=== PATIENT | male | born 1990 | race Hispanic/Latino ===

== ENCOUNTER 2024-10-30 09:31 | Day surgery (SDC) | payer OTHER ==
[2024-10-30] VITALS (229 sets, daily range): BP systolic 108–167; BP diastolic 60–132
[~2024-10-30] VITALS: Ht 175.3 cm; Wt 86.0 kg
[2024-10-30 08:44] LABS: BASO% 1.3 % (0-3); EOS% 0.3 % (0-8); HEMATOCRIT 41.8 % (39.0-50.0); HEMOGLOBIN 14.8 g/dl (14.0-18.0); IMMATURE GRANULOCYTES 0.3 % (0.0-5.0); LYMPH% 22.8 % (15-41); MEAN CELL VOLUME 93.1 fL CALC (80.0-100.0); MEAN CORPUSCULAR HGB CONC 35.4 g/dL CAL (32.0-36.0); MONO% 10.6 % (2-13); NEUT# 2.02 thou/uL (1.82-7.42); NEUT% 64.7 % (42-76); RED BLOOD COUNT 4.49 mill/uL (4.70-6.10); RED CELL DISTRI WIDTH 13.1 % (11.5-15.5)
[2024-10-30 08:51] LABS: ALBUMIN 4.8 g/dL (3.2-5.0); BILIRUBIN, TOTAL 0.7 mg/dL (0.2-1.3); CREATININE 0.5 mg/dL (0.7-1.3); POTASSIUM 4.3 mmol/l (3.5-5.1); TOTAL PROTEIN 7.6 g/dL (6.3-8.2)
[~2024-10-30 09:31] MED LIST: ALBUTEROL SULFATE 2.5 MG VIAL IN PRN; ASCORBIC ACID 4,000 MG in SODIUM CHLORIDE 0.9% 1,000 ML IV SCH; CYANOCOBALAMIN 500 MCG/TAB ( B12) PO PRN; DEXMEDETOMIDINE HCL IN SODIUM 100 ML IV SCH; DiphenhydrAMINE HCL 50 MG/ML SDV IV PRN; FAMOTIDINE 20 MG/TAB PO PRN; LACTATED RINGER'S 1,000 ML IV PRN; LIDOCAINE HCL 1% (10MG/ML) 100 MG/10 ML MDV IV PRN; LIDOCAINE HCL 1% (10MG/ML) 100 MG/10 ML MDV VT PRN; MAGNESIUM SULFATE HEPTAHYDRATE 100 ML IV PRN; MIDAZOLAM HCL 2 MG/2 ML VIAL IV PRN; NALTREXONE HCL 50 MG/TAB VT PRN; OCTREOTIDE ACETATE 100 MCG/VIAL SDV SC PRN; ONDANSETRON HCl 4 MG/2 ML SDV IV PRN; PANTOPRAZOLE SODIUM Sesquihydr 40 MG/TAB PO PRN; POTASSIUM CHLORIDE 20 MEQ/100 ML BAG IV PRN; PROPOFOL 10 MG/ML 100ML VIAL IV PRN; PROPOFOL 100 ML IV PRN; ROCURONIUM BROMIDE 10 MG/ML 5 ML VIAL IV PRN; SCOPOLAMINE 1.5 MG DIS TD PRN; SODIUM CHLORIDE 0.9% 1,000 ML IV PRN; STERILE WATER FOR IRRIGATION 1,000 ML BTL IR PRN; SUCCINYLCHOLINE CHLORIDE 20 MG/ML 10ML VIAL IV PRN; THIAMINE HCL 100 MG/ML 2ML VIAL IV PRN; cloNIDine HCL 0.1 MG/TAB PO PRN; cloNIDine HCL 0.1 MG/TAB VT PRN; cloNIDine HYDROCHLORIDE 100 MCG/ML 10 ML INJ IV PRN; diazePAM 5 MG/TAB PO PRN; diazePAM 5 MG/TAB VT PRN
[2024-10-30] MEDS ORDERED: METOPROLOL TARTRATE 5 MG/5 ML VIAL IV SCH (12:45)
[2024-10-30] MEDS ORDERED: ADDERALL20 MG PO (12:55)
[2024-10-30] MEDS ORDERED: CLONIDINE0.1 MG PO (14:30)
[2024-10-30] MEDS ORDERED: hydrALAZINE HCL 20 MG/ML VIAL(1 ML) IV SCH (14:30)
[2024-10-30] MEDS ORDERED: NALTREXONE50 MG PO (14:30)
[2024-10-30] MEDS ORDERED: KLONOPIN2 MG PO (14:31)
[2024-10-30] MEDS ORDERED: SODIUM CHLORIDE 0.9% 1,000 ML IV PRN (14:35)
[2024-10-30] MEDS ORDERED: MIDAZOLAM HCL 2 MG/2 ML VIAL IV PRN ×2 (14:40)
[2024-10-30] MEDS ORDERED: ACETAMINOPHEN 500 MG TAB PO PRN (19:00)
[2024-10-30] MEDS ORDERED: PROMETHAZINE HCL 12.5 MG in SODIUM CHLORIDE 0.9% 50 ML IV PRN (19:00)
[2024-10-30] MEDS ORDERED: PROMETHAZINE HCL 25 MG in SODIUM CHLORIDE 0.9% 50 ML IV PRN (19:00)
[2024-10-30] MEDS ORDERED: ACETAMINOPHEN 1,000 MG/100 ML VIAL IV PRN (19:00)
[2024-10-30] MEDS ORDERED: ONDANSETRON HCl 4 MG/2 ML SDV IV PRN ×2 (19:00)
[2024-10-30] MEDS ORDERED: HALOPERIDOL LACTATE 5 MG/ML SDV IV PRN (19:00)
[2024-10-30] MEDS ORDERED: KETOROLAC TROMETHAMINE 30 MG/ML SDV IV PRN (19:00)
[2024-10-30] MEDS ORDERED: PATIENT' OWN MED CONTROLLED 1 EA DOSE IV PRN (21:00)
[2024-10-30] MEDS ORDERED: clonazePAM 1 MG/TAB PO PRN (23:00)
[2024-10-30] MEDS ORDERED: cloNIDine HCL 0.1 MG/TAB PO SCH (23:00)
[2024-10-31 03:11] VITALS: BP 128/76
[2024-10-31] MEDS ORDERED: clonazePAM 1 MG/TAB PO PRN ×2 (04:00→08:00)
[2024-10-31] MEDS ORDERED: NALTREXONE HCL 50 MG/TAB PO SCH (04:00)
[2024-10-31] MEDS ORDERED: cloNIDine HCL 0.1 MG/TAB PO PRN (04:00)
[2024-10-31 04:46] LABS: BASO% 0.2 % (0-3); HEMATOCRIT 44.7 % (39.0-50.0); IMMATURE GRANULOCYTES 0.3 % (0.0-5.0); LYMPH% 4.8 % (15-41); MEAN CELL VOLUME 91.8 fL CALC (80.0-100.0); MEAN CORPUSCULAR HGB 32.9 pG CALC (26.0-32.0); MEAN CORPUSCULAR HGB CONC 35.8 g/dL CAL (32.0-36.0); MONO% 6.5 % (2-13); NEUT# 8.09 thou/uL (1.82-7.42); NEUT% 88.2 % (42-76); RED BLOOD COUNT 4.87 mill/uL (4.70-6.10); RED CELL DISTRI WIDTH 13.1 % (11.5-15.5)
[2024-10-31 05:16] LABS: CREATININE 0.6 mg/dL (0.7-1.3); MAGNESIUM 2.3 mg/dL (1.6-2.3); POTASSIUM 3.8 mmol/l (3.5-5.1); TOTAL PROTEIN 8.4 g/dL (6.3-8.2)
[2024-10-31] MEDS ORDERED: PANTOPRAZOLE SODIUM Sesquihydr 40 MG/TAB PO SCH (08:00)
[2024-10-31] MEDS ORDERED: cloNIDine HCL 0.1 MG/TAB PO SCH (08:00)
[2024-10-31] MEDS ORDERED: ACETAMINOPHEN 325 MG/TAB PO SCH (08:00)
[2024-10-31 08:26] VITALS: BP 123/69
[2024-10-31] MEDS ORDERED: MAGNESIUM OXIDE 400 MG/TAB PO PRN (09:00)
[2024-10-31] MEDS ORDERED: Cholecalciferol 2,000 UNIT/TAB PO PRN (09:00)
[2024-10-31] MEDS ORDERED: ACETAMINOPHEN 500 MG TAB PO PRN (09:00)
[2024-10-31] MEDS ORDERED: POTASSIUM CHLORIDE 20 MEQ/TAB PO SCH (09:12)
== END 2024-10-31 14:53 | disposition home or self-care (01) | DRG 897 ==
LOC: ANR 09:31 → MS2 09:31 → ANR 10-31 14:53
PROVIDERS: ATTEND Anesthesiology
DX: F11.20 Opioid dependence, uncomplicated (principal)
CPT/HCPCS: J0360; J1100; J1200; J2354; J2405; J2704; J3475; J3480; J3490